=== PATIENT | female | born 1945 | race Caucasian/White ===

== ENCOUNTER 2016-11-10 12:09 | Emergency (ER) | payer MEDICARE, OTHER ==
[~2016-11-10 12:09] MED LIST: AMBI5TAB PO; CITA-48 PO; HYDR-3133 PO; HYOS0.1251 PO; LORTA5 PO; METH10TA PO; OMEP20TA OR; ONDA4TAB7 OR; TAB-TAB PO; TRAM50 PO; VALA500 PO; VITA400C70 PO
[2016-11-10 12:16] VITALS: BP 142/68; PULSE 85; RESP 18; TEMP 98.6; O2SAT 94
--- NOTE | 2016-11-10 13:19 | PD ---
HPI Chief Complaint: Laceration/Skin Injury Time Seen by Provider: 13:16 Travel History International Travel<30 days: No Contact w/Intl Traveler<30days: No Traveled to known affect area: No History of Present Illness HPI 71-year-old female presents the emergency department with wound to the left dorsal proximal forearm from a dog scratch 7 days prior to this visit. She has been treating this at home. She has localized erythema, swelling, and discomfort. She has history of MRSA in the past. Patient has a caregiver weathers since there was some drainage earlier today. Pain currently is a 2/ 10. Patient denies fever, chills, or other symptoms. No current bleeding or drainage at this time. She is allergic to morphine. PFSH Past Medical History Arthritis: Yes (osteoarthritis) Asthma: Yes Blood Disorders: No Anxiety: No Depression: Yes Heart Rhythm Problems: No Cancer: No Cardiac Catheterization: Yes (2011) Cardiovascular Problems: Yes High Cholesterol: No Chest Pain: Yes Congestive Heart Failure: No Diabetes: No Endocrine: No Genitourinary: No Hypertension: Yes Immune Disorder: No Musculoskeletal: No Neurologic: No Psychiatric: Yes Reproductive: Yes (Hysterectomy) Respiratory: No PNEUMOCCOCAL Vaccine (Year): 2 Menopausal: Yes Past Surgical History Coronary Artery Bypass Graft: No Hysterectomy: Yes (1978) Other Surgery: Yes (negative breast biopsy 2001) Social History Alcohol Use: No Tobacco Use: No Substance Use: No Allergies-Medications (Allergen,Severity, Reaction): Coded Allergies: Morphine (Verified Allergy, Severe, HIVES, 08/12/12) Reported Meds & Prescriptions Reported Meds & Active Scripts Active Ondansetron Odt (Ondansetron HCl) 4 Mg Tab 4 Mg OR Q6HPRN [place] 5/325 (Hydrocodone-Acetaminophen) 325 Mg/5 Mg Tab 1-2 Tab PO Q4HPRN Ultram (Tramadol HCl) 50 Mg Tab 1 Tab PO Q6-8HPRN FOR PAIN Reported Valtrex (Valacyclovir HCl) 500 Mg Tab 500 Mg PO DAILY Hyoscyamine Sulfate 0.125 Mg/Ml [place] 0.125 Mg PO TIDPRN Hydroxyzine Hcl (Hydroxyzine HCl) 25 Mg Tab 25 Mg PO DIRECTED Methadone Hcl (Methadone HCl) 10 Mg Tab 10 Mg PO DAILY Ambien (Zolpidem Tartrate) 5 Mg Tab 5 Mg PO HS Vitamin E 400 Units Cap 800 Units PO DAILY Multivitamin (Multivitamins) 1 Tab Tab 1 Tab PO DAILY Citalopram Hydrobromide 40 Mg Tab 40 Mg PO DAILY Omeprazole 20 Mg Tab 20 Mg OR DAILY Review of Systems Except as stated in HPI: all other systems reviewed are Neg General / Constitutional: No: Fever Eyes: No: Visual changes HENT: No: Headaches Cardiovascular: No: Chest Pain or Discomfort Respiratory: No: Shortness of Breath Gastrointestinal: No: Abdominal Pain Genitourinary: No: Dysuria Musculoskeletal: No: Pain Skin: Positive Lesions, No Rash Neurologic: No: Weakness Psychiatric: No: Depression Endocrine: No: Polydipsia Hematologic/Lymphatic: No: Easy Bruising Physical Exam Narrative GENERAL: Patient appears no acute distress. SKIN: Warm and dry. Patient has a superficial abrasion to the left dorsal proximal forearm with localized erythema and swelling measuring approximately 6 cm across. There is no obvious signs of elbow involvement. HEAD: Atraumatic. Normocephalic. EYES: Pupils equal and round. No scleral icterus. No injection or drainage. ENT: No nasal bleeding or discharge. Mucous membranes pink and moist. NECK: Trachea midline. Supple and nontender. CARDIOVASCULAR: Regular rate and rhythm. RESPIRATORY: No accessory muscle use. Clear to auscultation. Breath sounds equal bilaterally. GASTROINTESTINAL: Abdomen soft, non-tender, nondistended. Hepatic and splenic margins not palpable. MUSCULOSKELETAL: Extremities without clubbing, cyanosis, or edema. No obvious deformities. NEUROLOGICAL: Awake and alert. No obvious cranial nerve deficits. Motor grossly within normal limits. Five out of 5 muscle strength in the arms and legs. Normal speech. PSYCHIATRIC: Appropriate mood and affect; insight and judgment normal. Data Data Last Documented VS Vital Signs Date Time Temp Pulse Resp B/P Pulse Ox O2 Delivery O2 Flow Rate FiO2 11/10/16 13:25 18 11/10/16 12:16 98.6 85 142/68 94 Orders Clindamycin Inj (Cleocin Inj) (11/10/16 13:30) [facility] Medical Decision Making Medical Screen Exam Complete: Yes Emergency Medical Condition: Yes Differential Diagnosis Dog scratch. Abrasion. Cellulitis. History of MRSA. Narrative Course Patient is felt to be medically stable at time of exam. Patient Is given 600 mg clindamycin IM. Patient is given Bactrim DS twice a day 7 days. Patient is given Bactroban topically applied to the wound twice daily with dressing changes. Can take Tylenol as needed for pain. Patient to follow-up with her primary care physician as scheduled. Patient can return the emergency Department with worsening symptoms if necessary. Diagnosis Primary Impression: Abrasion of forearm with infection Qualified Code: S50.812A - Infected abrasion of left forearm, initial encounter Referrals: Primary Care Physician Patient Instructions: Cellulitis (DC), General Instructions Additional Instructions: Patient Is given 600 mg clindamycin IM. Patient is given Bactrim DS twice a day 7 days. Patient is given Bactroban topically applied to the wound twice daily with dressing changes. Can take Tylenol as needed for pain. Patient to follow-up with her primary care physician as scheduled. Patient can return the emergency Department with worsening symptoms if necessary. Med/Other Pt SpecificInfo: Prescription(s) given Disposition: 01 DISCHARGE HOME Condition: Stable Frank Nguyen Nov 10, 2016 13:19
[2016-11-10] MEDS ORDERED: CLINDAMYCIN PHOS 600 MG/4 ML VIAL IM ONE (13:30)
[2016-11-10] MEDS ORDERED: BACT800T5 PO (13:34)
[2016-11-10] MEDS ORDERED: MUPI2%T TOPICAL (13:34)
== END 2016-11-10 13:59 | disposition home or self-care (01) ==
LOC: NEPD 12:09
DX: S50.812A Abrasion of left forearm, initial encounter (principal); L08.9 Local infection of the skin and subcutaneous tissue, unspecified; I10 Essential (primary) hypertension; Z86.14 Personal history of Methicillin resistant Staphylococcus aureus infection; Z87.39 Personal history of other diseases of the musculoskeletal system and connective tissue; Z87.09 Personal history of other diseases of the respiratory system; Z86.59 Personal history of other mental and behavioral disorders; Z86.79 Personal history of other diseases of the circulatory system; X58.XXXA Exposure to other specified factors, initial encounter
CPT/HCPCS: 96372